=== PATIENT | female | born 1955 | race Caucasian/White ===

== ENCOUNTER 2017-06-27 06:20 | Observation (INO) | payer SELFPAY ==
[2017-06-27] VITALS (14 sets, daily range): BP systolic 118–193; BP diastolic 69–101; PULSE 85–99; RESP 14–18; TEMP 97.2–98.4; O2SAT 93–98
[~2017-06-27] VITALS: Ht 160 cm; Wt 104.2 kg
[~2017-06-27 06:20] MED LIST: GABA300C5 PO; METF500T PO
[2017-06-27] MEDS ORDERED: MORPHINE SULFATE 8 MG/ML INJ IV PUSH ONE (06:45)
[2017-06-27] MEDS ORDERED: SODIUM CHLORIDE 0.9% FLUSH 10 ML FLUSH IV FLUSH PRN ×2 (06:45→11:15)
[2017-06-27] MEDS ORDERED: ONDANSETRON HCL 4 MG/2 ML VIAL IVP ONE (06:45)
--- NOTE | 2017-06-27 06:47 | PD ---
HPI Chief Complaint: Abdominal Pain Time Seen by Provider: 06:42 Travel History International Travel<30 days: No Contact w/Intl Traveler<30days: No Traveled to known affect area: No History of Present Illness HPI 62yo F with PMH of COPD, DM and peripheral neuropathy presents to the ED with c/ o abdominal pain that started at 4am today. Pain is epigastric, RUQ and feels like it's on fire. It is sharp, constant and nonradiating. Associated with nausea and sob. Denies any fever, chest pain, vomiting, dysuria, hematuria, focal weakness or numbness. Denies history of gallstone or kidney stones. PFSH Past Medical History Arthritis: No Asthma: Yes Autoimmune Disease: No Blood Disorders: No Heart Rhythm Problems: No Cancer: No Cardiac Catheterization: No Cardiovascular Problems: No High Cholesterol: No Chemotherapy: No Chest Pain: No Congestive Heart Failure: No COPD: No Cerebrovascular Accident: No Diabetes: Yes Patient Takes Glucophage: No Diminished Hearing: No Endocrine: No Gastrointestinal Disorders: Yes GERD: No Glaucoma: No Genitourinary: No Headaches: No Hepatitis: No Hiatal Hernia: No Hypertension: No Immune Disorder: No Kidney Stones: No Musculoskeletal: No Neurologic: No Psychiatric: No Reproductive: No Respiratory: No Immunizations Current: Yes Migraines: No Myocardial Infarction: No Radiation Therapy: No Renal Failure: No Seizures: No Sickle Cell Disease: No Sleep Apnea: No Thyroid Disease: No Ulcer: No Influenza Vaccination: No ?: Not Menopausal: Yes : 2 Para: 2 Past Surgical History Abdominal Surgery: No AICD: No Arteriovenous Shunt: No Cardiac Surgery: No Section: Yes Coronary Artery Bypass Graft: No Ear Surgery: No Endocrine Surgery: No Eye Surgery: No Genitourinary Surgery: No Gynecologic Surgery: No Insulin Pump: No Joint Replacement: No Oral Surgery: No Pacemaker: No Thoracic Surgery: No Social History Alcohol Use: No Tobacco Use: Yes (1/2 PPD) Substance Use: No Allergies-Medications (Allergen,Severity, Reaction): Coded Allergies: No Known Allergies (Verified , 06/27/17) Reported Meds & Prescriptions Reported Meds & Active Scripts Active Reported Metformin (Metformin HCl) 500 Mg Tab 500 Mg PO BIDPC With meals Gabapentin 300 Mg Cap 300 Mg PO BID Review of Systems Except as stated in HPI: all other systems reviewed are Neg Physical Exam Narrative GENERAL: 62yo F in moderate distress. SKIN: Focused skin assessment warm/dry. HEAD: Atraumatic. Normocephalic. CARDIOVASCULAR: Regular rate and rhythm. No murmur appreciated. RESPIRATORY: No accessory muscle use. Crackle in left base. GASTROINTESTINAL: Abdomen soft, +TTP Epigastric and RUQ. MUSCULOSKELETAL: No obvious deformities. No clubbing. No cyanosis. +Trace bilateral lower edema. NEUROLOGICAL: Awake and alert. No obvious cranial nerve deficits. Motor grossly within normal limits. Normal speech. PSYCHIATRIC: Appropriate mood and affect; insight and judgment normal. Data Data Last Documented VS Vital Signs Date Time Temp Pulse Resp B/P (MAP) Pulse Ox O2 Delivery O2 Flow Rate FiO2 06/27/17 10:15 94 16 170/88 (115) 98 Room Air 06/27/17 08:35 2.00 06/27/17 06:36 98.1 Orders Orders Complete Blood Count With Diff (06/27/17 06:42) Comprehensive Metabolic Panel (06/27/17 06:42) Lipase (06/27/17 06:42) Prothrombin Time / Inr (Pt) (06/27/17 06:42) Act Partial Throm Time (Ptt) (06/27/17 06:42) Urinalysis - C+S If Indicated (06/27/17 06:42) Ct Abd/Pel W Iv Contrast(Rout) (06/27/17 06:42) Iv Access Insert/Monitor (06/27/17 06:42) Ecg Monitoring (06/27/17 06:42) Oximetry (06/27/17 06:42) Ondansetron Inj (Zofran Inj) (06/27/17 06:45) Sodium Chloride 0.9% Flush (Ns Flush) (06/27/17 06:45) Electrocardiogram (06/27/17 06:42) Troponin I (06/27/17 06:42) B-Type Natriuretic Peptide (06/27/17 06:42) Chest, Single Ap (06/27/17 ) Morphine Inj (Morphine Inj) (06/27/17 06:45) Iohexol 350 Inj (Omnipaque 350 Inj) (06/27/17 07:30) Us Abdomen Gallbladder (06/27/17 ) Us Abdomen Gallbladder (06/27/17 ) Piperacil-Tazo 3.375 Gm Premix (Zosyn 3. (06/27/17 10:45) Consult General Surgery (06/27/17 ) Admit Order (Ed Use Only) (06/27/17 10:43) Labs Laboratory Tests Test 06/27/17 06:45 06/27/17 08:30 White Blood Count 10.8 TH/MM3 Red Blood Count 5.47 MIL/MM3 Hemoglobin 15.6 GM/DL Hematocrit 47.9 % Mean Corpuscular Volume 87.5 FL Mean Corpuscular Hemoglobin 28.6 PG Mean Corpuscular Hemoglobin Concent 32.7 % Red Cell Distribution Width 13.4 % Platelet Count 275 TH/MM3 Mean Platelet Volume 8.4 FL Neutrophils (%) (Auto) 77.8 % Lymphocytes (%) (Auto) 12.8 % Monocytes (%) (Auto) 4.9 % Eosinophils (%) (Auto) 2.0 % Basophils (%) (Auto) 2.5 % Neutrophils # (Auto) 8.4 TH/MM3 Lymphocytes # (Auto) 1.4 TH/MM3 Monocytes # (Auto) 0.5 TH/MM3 Eosinophils # (Auto) 0.2 TH/MM3 Basophils # (Auto) 0.3 TH/MM3 CBC Comment DIFF FINAL Differential Comment Prothrombin Time 9.7 SEC Prothromb Time International Ratio 0.9 RATIO Activated Partial Thromboplast Time 28.2 SEC Blood Urea Nitrogen 12 MG/DL Creatinine 0.80 MG/DL Random Glucose 310 MG/DL Total Protein 7.8 GM/DL Albumin 3.3 GM/DL Calcium Level 8.8 MG/DL Alkaline Phosphatase 149 U/L Aspartate Amino Transf (AST/SGOT) 10 U/L Alanine Aminotransferase (ALT/SGPT) 20 U/L Total Bilirubin 0.3 MG/DL Sodium Level 136 MEQ/L Potassium Level 3.9 MEQ/L Chloride Level 104 MEQ/L Carbon Dioxide Level 26.0 MEQ/L Anion Gap 6 MEQ/L Estimat Glomerular Filtration Rate 72 ML/MIN Troponin I LESS THAN 0.02 NG/ML B-Type Natriuretic Peptide 5 PG/ML Lipase 243 U/L Urine Collection Type CLEAN CATCH Urine Color YELLOW Urine Turbidity CLEAR Urine pH 6.0 Urine Specific [place] GREATER THAN 1.035 Urine Protein NEG mg/dL Urine Glucose (UA) 1000 OR GREATER mg/dL Urine Ketones NEG mg/dL Urine Occult Blood TRACE Urine Nitrite NEG Urine Bilirubin NEG Urine Leukocyte Esterase NEG Urine RBC 0-3 /hpf Urine WBC 0-2 /hpf Urine Squamous Epithelial Cells 0-5 /hpf Urine Amorphous Sediment FEW Microscopic Urinalysis Comment CULT NOT INDICATED Urine Collection Time 0830 [facility] Medical Decision Making Medical Screen Exam Complete: Yes Emergency Medical Condition: Yes Differential Diagnosis Acute pancreatitis vs. cholecystitis vs. gastritis vs. colitis vs. atypical chest pain vs. pneumonia Narrative Course 62yo F with epigastric/right upper quadrant abdominal pain this morning that is associated with nausea and sob. Pt is not wheezing and saturating at 96% on RA. Pt seen at end of my shift and sign out to next team to follow up with labs , CXR, EKG, CT, UA and reevaluate after morphine, zofran. Diagnosis Primary Impression: Cholecystitis Leena Wilkins DO Jun 27, 2017 06:47
--- NOTE | 2017-06-27 06:59 | RADRPT ---
EXAM DATE/TIME: 06/27/2017 06:50 [facility] COMPARISON: No previous studies available for comparison. INDICATIONS : Short of breath. MEDICAL HISTORY : None. SURGICAL HISTORY : None. ENCOUNTER: Initial ACUITY: 1 day PAIN SCORE: 7/10 LOCATION: Bilateral chest FINDINGS: The heart size is normal. No focal consolidation is seen. There is minimal prominence of the intersti tium. No effusion is seen. CONCLUSION: Minimal prominence of the interstitium. José Manuel Lebron MD on June 27, 2017 at 6:57 Board Certified Radiologist. This report was verified electronically.
[2017-06-27 07:03] LABS: AUTOMATED NEUTROPHIL # 8.4 TH/MM3 (1.8-7.7); BASOPHIL # 0.3 TH/MM3 (0-0.2); BASOPHIL % 2.5 % (0.0-2.0); EOSINOPHIL # 0.2 TH/MM3 (0-0.4); HEMATOCRIT 47.9 % (35.0-46.0); LYMPH % 12.8 % (9.0-44.0); LYMPHOCYTE # 1.4 TH/MM3 (1.0-4.8); MEAN CELL VOLUME 87.5 FL (80.0-100.0); MEAN CORPUSCULAR HEMOGLOBIN 28.6 PG (27.0-34.0); MEAN CORPUSCULAR HGB CONC 32.7 % (32.0-36.0); MONO % 4.9 % (0.0-8.0); NEUT % 77.8 % (16.0-70.0); PLATELET COUNT 275 TH/MM3 (150-450); RED BLOOD COUNT 5.47 MIL/MM3 (4.00-5.30); RED CELL DISTRIBUTION WIDTH 13.4 % (11.6-17.2); WHITE BLOOD COUNT 10.8 TH/MM3 (4.0-11.0)
[2017-06-27 07:04] LABS: HEMO FLAGS DIFF FINAL
[2017-06-27 07:11] LABS: CHLORIDE 104 MEQ/L (98-107); POTASSIUM 3.9 MEQ/L (3.5-5.1); SODIUM (NA) 136 MEQ/L (136-145)
[2017-06-27 07:14] LABS: ANION GAP 6 MEQ/L (5-15)
[2017-06-27 07:15] LABS: APTT (PATIENT) 28.2 SEC (24.3-30.1); BLOOD UREA NITROGEN 12 MG/DL (7-18); INTERNATIONAL NORMALIZED RATIO 0.9 RATIO; PROTHROMBIN TIME - PATIENT 9.7 SEC (9.8-11.6)
[2017-06-27 07:17] LABS: ALT (GPT) 20 U/L (10-53); AST (GOT) 10 U/L (15-37); GLOMERULAR FILTRATION RATE 72 ML/MIN (>89)
[2017-06-27 07:19] LABS: TOTAL BILIRUBIN ADULT 0.3 MG/DL (0.2-1.0)
[2017-06-27 07:20] LABS: ALKALINE PHOSPHATASE 149 U/L (45-117)
[2017-06-27] MEDS ORDERED: IOHEXOL 350 MG/ML 10 ML VIAL (for RAD DIAG) IVCONTRAST ONE (07:30)
--- NOTE | 2017-06-27 07:53 | EKG ---
Date Performed: 06/27/2017 Time Performed: 07:08:05 PTAGE: 62 years EKG: Sinus rhythm NORMAL ECG No significant change from prior electrocardiogram. PREVIOUS TRACING : 08/31/2016 19.13 DOCTOR: Miguel Fishman Interpretating Date/Time 06/27/2017 07:51:15
--- NOTE | 2017-06-27 07:58 | RADRPT ---
EXAM DATE/TIME: 06/27/2017 07:32 [facility] COMPARISON: No previous studies available for comparison. INDICATIONS : Right sided abdominal pain. IV CONTRAST: 96 cc Omnipaque 350 (iohexol) IV ORAL CONTRAST: No oral contrast ingested. RADIATION DOSE: 22.10 CTDIvol (mGy) MEDICAL HISTORY : Diabetes SURGICAL HISTORY : C Section ENCOUNTER: Initial ACUITY: 1 day PAIN SCALE: 8/10 LOCATION: Right mid abdomen TECHNIQUE: Volumetric scanning of the abdomen and pelvis was performed. Using automated exposure control and ad justment of the mA and/or kV according to patient size, radiation dose was kept as low as reasonably achievable to obtain optimal diagnostic quality images. DICOM format image data is available electro nically for review and comparison. FINDINGS: LOWER LUNGS: The visualized lower lungs are clear. LIVER: Homogeneous density without lesion. There is no dilation of the biliary tree. There appears to be a stone in the base of the gallbladder. There is a trace of fluid adjacent to the gallbladder. Otherwis e, the gallbladder is unremarkable.. SPLEEN: Normal size without lesion. PANCREAS: Within normal limits. KIDNEYS: Normal in size and shape. There is no mass, stone or hydronephrosis. ADRENAL GLANDS: There is a 1.9 cm mass associated with the right adrenal gland. The left adrenal gland is unremarkabl e. VASCULAR: There is no aortic aneurysm. BOWEL/MESENTERY: The stomach, small bowel, and colon demonstrate no acute abnormality. There is no free intraperitone al air or fluid. The appendix is unremarkable. No inflammatory changes. ABDOMINAL WALL: Within normal limits. RETROPERITONEUM: There is no lymphadenopathy. BLADDER: No wall thickening or mass. REPRODUCTIVE: Within normal limits. INGUINAL: There is no lymphadenopathy or hernia. MUSCULOSKELETAL: Within normal limits for patient age. Mild degenerative changes. CONCLUSION: 1. There appears to be a gallstone in the base of the gallbladder. There is a trace of fluid around t he gallbladder. No biliary tract obstruction. 2. 1.9 cm right adrenal mass. This is most likely an adrenal adenoma. 3. The rest of examinations unremarkable for patient's age. Espinoza Vaughn MD on June 27, 2017 at 7:50 Board Certified Radiologist. This report was verified electronically.
[2017-06-27 08:51] LABS: BLOOD, URINE TRACE (NEG); GLUCOSE,URINE 1000 OR GREATER mg/dL (NEG); KETONE, URINE NEG (NEG); NITRITE,URINE NEG (NEG)
[2017-06-27 08:56] LABS: METHOD OF COLLECTION CLEAN CATCH; URINE COLOR YELLOW (YELLW/STRAW)
[2017-06-27 08:57] LABS: COMMENT (UR) CULT NOT INDICATED; CULTURE IF INDICATED CULT NOT INDICATED; RBC, URINE 0-3 /hpf (0-3); SQUAMOUS EPITHELIAL CELL URINE 0-5 /hpf (0-5); WBC, URINE 0-2 /hpf (0-5)
--- NOTE | 2017-06-27 09:50 | RADRPT ---
EXAM DATE/TIME: 06/27/2017 09:04 [facility] COMPARISON: CT ABDOMEN & PELVIS W CONTRAST, June 27, 2017, 7:32. INDICATIONS : Right upper quadrant pain. MEDICAL HISTORY : Asthma. Heartburn. Diabetes. SURGICAL HISTORY : section. ENCOUNTER: Initial ACUITY: 1 day PAIN SCORE: 8/10 LOCATION: Right upper quadrant MEASUREMENTS: LIVER: 17.8 cm length COMMON DUCT: Non-visualized RIGHT KIDNEY: 11.1 x 4.2 x 4.5 cm FINDINGS: LIVER: There is some increased echogenicity to liver parenchyma characteristic for fatty infiltration. No di lated biliary ducts. The portal system is patent. There is no evidence of ascites. COMMON DUCT: No intraluminal mass or stone visualized. GALLBLADDER: No definite gallstones are demonstrated. There is some sludge in the base of the gallbladder. There i s mild thickening of the gallbladder wall 3-4 mm. There is a trace of fluid around the gallbladder. PANCREAS: Not well visualized due to overlying bowel gas.. RIGHT KIDNEY: No evidence of hydronephrosis, stone, or mass. CONCLUSION: 1. No definite gallstones or biliary tract obstruction. 2. Mild thickening of the gallbladder wall with trace of fluid around the gallbladder. This most like ly chronic gallbladder disease. Espinoza Vaughn MD on June 27, 2017 at 9:46 Board Certified Radiologist. This report was verified electronically.
[2017-06-27] MEDS ORDERED: PIPERACIL-TAZO 3.375 GM PREMIX 50 ML IV ONE (10:45)
[2017-06-27] MEDS ORDERED: SODIUM CHLOR 0.9% 1000 ML INJ 1,000 ML IV SCH (11:12)
[2017-06-27] MEDS ORDERED: ACETAMINOPHEN 325 MG TAB PO PRN ×2 (11:15)
[2017-06-27] MEDS ORDERED: BISACODYL 10 MG SUPP RECTAL PRN (11:15)
[2017-06-27] MEDS ORDERED: SENNOSIDES 8.6 MG TAB PO PRN (11:15)
[2017-06-27] MEDS ORDERED: ONDANSETRON HCL 4 MG/2 ML VIAL IVP PRN (11:15)
[2017-06-27] MEDS ORDERED: NALOXONE HCL 0.4 MG/ML AMP IV PUSH PRN ×2 (11:15)
[2017-06-27] MEDS ORDERED: MAGNESIUM HYDROXIDE SUSP 30 ML CUP PO PRN (11:15)
[2017-06-27] MEDS: PIPERACIL-TAZO 4.5 GM PREMIX 100 ML IV SCH ×2 (11:34→18:00)
[2017-06-27] MEDS: SODIUM CHLOR 0.9% 1000 ML INJ 1,000 ML IV SCH (11:34)
[2017-06-27] MEDS: INSULIN ASPART SUPPLEMENTAL SCALE SQ SCH ×3 (12:00→21:00)
[2017-06-27] MEDS: HEPARIN SODIUM - SQ 10,000 UNITS/ML VIAL SQ SCH ×2 (13:06→20:00)
[2017-06-27] MEDS: MORPHINE SULFATE 4 MG/ML INJ IV PUSH PRN ×2 (13:09→21:34)
--- NOTE | 2017-06-27 13:49 | HHI.HP ---
[facility]Staff Ad[facility] Diagnosis acute cholecystitis Diagnoses: (1) Abdominal pain Diagnosis: Principal (2) Cholelithiasis Diagnosis: Principal Chief Complaint: Abdominal pain Travel History International Travel<30 Days: No Contact w/Intl Traveler <30 Da: No Traveled to Known Affected Are: No History of Present Illness Written by Norm Rubi, acting as scribe for Dr. Dubose on 06/27/17 at 13: 40. 62-year-old female with known history of diabetes, diabetic neuropathy , recently diagnosed with cancer who presented to hospital because acute onset abdominal pain. Patient states that she has been under a lot of stress recently over the last 2 days because she was just diagnosed with breast cancer which she tried indicate was ductal carcinoma of the right breast. She has had diarrhea for the last 2 days. However this morning at 4:30 AM she had sudden onset of right upper quadrant abdominal pain which was severe 10/10 on a pain scale with associated nausea and vomiting throughout the night with dry heaves. She states that she did have some diaphoresis. However she denied any fever or chills. She thought that she was having a heart attack with the discomfort she was experiencing so she came to the hospital for evaluation. Patient had workup done and CT the abdomen shows gallstone noted in the base of the gallbladder with trace of fluid around the gallbladder. Ultrasound was performed which did show mild thickening in the gallbladder wall with trace of fluid around the gallbladder. Because of those findings ER physician contacted general surgery who recommended medical observation with consultation. Review of Systems Respiratory: COMPLAINS OF: Shortness of breath Gastrointestinal: COMPLAINS OF: Abdominal pain, Diarrhea, Nausea, Vomiting Except as stated in HPI: all other systems reviewed are Neg Past Family Social History Past Medical History Diabetes Diabetic neuropathy Recent diagnosis of breast cancer Past Surgical History 2 Eyelid surgery Reported Medications Reported Meds & Active Scripts Active Reported Metformin (Metformin HCl) 500 Mg Tab 500 Mg PO BIDPC With meals Gabapentin 300 Mg Cap 300 Mg PO BID Allergies: Coded Allergies: No Known Allergies (Verified , 06/27/17) Family History Reviewed is significant for mother with cervical cancer, father with diabetes Social History Patient continues smoke a half a pack a cigarettes a day since she was 19 years old. Denies any alcohol or illicit drugs Physical Exam Vital Signs Vital Signs Date Time Temp Pulse Resp B/P (MAP) Pulse Ox O2 Delivery O2 Flow Rate FiO2 06/27/17 12:05 94 18 162/85 (110) 95 Nasal Cannula 2.00 06/27/17 10:53 96 16 169/87 (114) 96 Nasal Cannula 2.00 06/27/17 10:15 94 16 170/88 (115) 98 Room Air 06/27/17 08:35 97 16 179/89 (119) 93 Nasal Cannula 2.00 06/27/17 07:23 99 16 143/85 (104) 93 Nasal Cannula 2.00 06/27/17 07:10 16 06/27/17 06:55 18 94 Room Air 06/27/17 06:39 18 06/27/17 06:36 98.1 93 18 193/101 (131) 96 06/27/17 06:25 98.1 93 18 193/101 (131) 96 Physical Exam GENERAL: Well-developed, well-nourished, in no acute distress. alert and orientated HEENT: Head is normocephalic without any lesions or masses noted. Facial features are symmetric. Eyes: Pupils equal round reactive to light. Extraocular muscles are intact. Conjunctivae were clear. Oropharyngeal: Pharynx without any erythema edema. Tongue is midline without deviation. Buccal mucosa is moist without any masses or lesions NECK: Supple without any masses. Trachea midline no deviation. No JVD, no bruits are appreciated CARDIAC: Regular rhythm, regular rate. S1/S2 are heard. No murmurs gallops or rubs. LUNGS: Clear to auscultation bilaterally. No wheeze, rhonchi or rales. No use of accessory muscles on inspiration or expiration. ABDOMEN: Soft, significant pain in right upper quadrant with guarding. Nondistended. Bowel sounds heard in all 4 quadrants. No organomegaly or masses. Negative rebound, EXTREMITIES: No edema, pulses are equal bilaterally. No cyanosis or clubbing NEUROLOGY: Mood and affect appear appropriate. Cranial nerves II through XII grossly intact. Muscle strength 5/5 in upper and lower extremities bilaterally. Deep tendon reflexes are 2+ in upper and lower extremities bilaterally. Laboratory Laboratory Tests Test 06/27/17 06:45 10/14/17 08:30 White Blood Count 10.8 Red Blood Count 5.47 Hemoglobin 15.6 Hematocrit 47.9 Mean Corpuscular Volume 87.5 Mean Corpuscular Hemoglobin 28.6 Mean Corpuscular Hemoglobin Concent 32.7 Red Cell Distribution Width 13.4 Platelet Count 275 Mean Platelet Volume 8.4 Neutrophils (%) (Auto) 77.8 Lymphocytes (%) (Auto) 12.8 Monocytes (%) (Auto) 4.9 Eosinophils (%) (Auto) 2.0 Basophils (%) (Auto) 2.5 Neutrophils # (Auto) 8.4 Lymphocytes # (Auto) 1.4 Monocytes # (Auto) 0.5 Eosinophils # (Auto) 0.2 Basophils # (Auto) 0.3 CBC Comment DIFF FINAL Differential Comment Prothrombin Time 9.7 Prothromb Time International Ratio 0.9 Activated Partial Thromboplast Time 28.2 Blood Urea Nitrogen 12 Creatinine 0.80 Random Glucose 310 Total Protein 7.8 Albumin 3.3 Calcium Level 8.8 Alkaline Phosphatase 149 Aspartate Amino Transf (AST/SGOT) 10 Alanine Aminotransferase (ALT/SGPT) 20 Total Bilirubin 0.3 Sodium Level 136 Potassium Level 3.9 Chloride Level 104 Carbon Dioxide Level 26.0 Anion Gap 6 Estimat Glomerular Filtration Rate 72 Troponin I LESS THAN 0.02 B-Type Natriuretic Peptide 5 Lipase 243 Urine Collection Type CLEAN CATCH Urine Color YELLOW Urine Turbidity CLEAR Urine pH 6.0 Urine Specific [place] GREATER THAN 1.035 Urine Protein NEG Urine Glucose (UA) 1000 OR GREATER Urine Ketones NEG Urine Occult Blood TRACE Urine Nitrite NEG Urine Bilirubin NEG Urine Leukocyte Esterase NEG Urine RBC 0-3 Urine WBC 0-2 Urine Squamous Epithelial Cells 0-5 Urine Amorphous Sediment FEW Microscopic Urinalysis Comment CULT NOT INDICATED Urine Collection Time 0830 Result Diagram: 06/27/1745 06/27/17644 Imaging Last Impressions Abdomen/Pelvis CT 06/27/17641 Signed Impressions: Service Date/Time: Tuesday, June 27, 2017 07:32 - CONCLUSION: 1. There appears to be a gallstone in the base of the gallbladder. There is a trace of fluid around the gallbladder. No biliary tract obstruction. 2. 1.9 cm right adrenal mass. This is most likely an adrenal adenoma. 3. The rest of examinations unremarkable for patient's age. Espinoza Vaughn MD Gall Bladder Ultrasound 10/14/17 0000 Signed Impressions: Service Date/Time: Tuesday, June 27, 2017 09:04 - CONCLUSION: 1. No definite gallstones or biliary tract obstruction. 2. Mild thickening of the gallbladder wall with trace of fluid around the gallbladder. This most likely chronic gallbladder disease. Espinoza Vaughn MD Chest X-Ray 06/27/17 0000 Signed Impressions: Service Date/Time: Tuesday, June 27, 2017 06:50 - CONCLUSION: Minimal prominence of the interstitium. José Manuel Lebron MD Caprini VTE Risk Assessment Caprini VTE Risk Assessment: Mod/High Risk (score >= 2) Caprini Risk Assessment Model Point Value = 1 Point Value = 2 Point Value = 3 Point Value = 5 Age 41-60 Minor surgery BMI > 25 kg/m2 Swollen legs Varicose veins or History of unexplained or recurrent spontaneous Oral contraceptives or hormone replacement Sepsis (< 1 month) Serious lung disease, including pneumonia (< 1 month) Abnormal pulmonary function Acute myocardial infarction Congestive heart failure (< 1 month) History of inflammatory bowel disease Medical patient at bed rest Age 61-74 Arthroscopic surgery Major open surgery (> 45 min) Laparoscopic surgery (> 45 min) Malignancy Confined to bed (> 72 hours) Immobilizing plaster cast Central venous access Age >= 75 History of VTE Family history of VTE Factor V Leiden Prothrombin [id number] Lupus anticoagulant Anticardiolipin antibodies Elevated serum homocysteine Heparin-induced thrombocytopenia Other congenital or acquired thrombophilia Stroke (< 1 month) Elective arthroplasty Hip, pelvis, or leg fracture Acute spinal cord injury (< 1 month) Prophylaxis Regimen Total Risk Factor Score Risk Level Prophylaxis Regimen 0-1 Low Early ambulation 2 Moderate Order ONE of the following: *Sequential Compression Device (SCD) *Heparin 5000 units SQ BID 3-4 Higher Order ONE of the following medications: *Heparin 5000 units SQ TID *Enoxaparin/Lovenox 40 mg SQ daily (WT < 150 kg, CrCl > 30 mL/min) *Enoxaparin/Lovenox 30 mg SQ daily (WT < 150 kg, CrCl > 10-29 mL/min) *Enoxaparin/Lovenox 30 mg SQ BID (WT < 150 kg, CrCl > 30 mL/min) AND/OR *Sequential Compression Device (SCD) 5 or more Highest Order ONE of the following medications: *Heparin 5000 units SQ TID (Preferred with Epidurals) *Enoxaparin/Lovenox 40 mg SQ daily (WT < 150 kg, CrCl > 30 mL/min) *Enoxaparin/Lovenox 30 mg SQ daily (WT < 150 kg, CrCl > 10-29 mL/min) *Enoxaparin/Lovenox 30 mg SQ BID (WT < 150 kg, CrCl > 30 mL/min) AND *Sequential Compression Device (SCD) Assessment and Plan Assessment and Plan Abdominal pain with CT/ultrasound findings of cholecystitis, cholelithiasis Liver enzymes do not indicate any obstructive process Consider HIDA scan, will defer to general surgery General surgery consultation Continue IV fluids, nothing by mouth, pain control Empirical antibiotics to include Zosyn Diabetes, diabetic neuropathy Accu-Cheks with sliding scale insulin Continue gabapentin DVT prevention Subcutaneous heparin This note was transcribed by scribgerri [Norm Rubi]. I, Dr. Humaira Dubose personally performed the history, physical exam, and medical decision making; and confirmed the accuracy of the information in the transcribed note. Authenticated by Dr. Humaira Dubose on 06/27/17 at 13:40. Norm Rubi Jun 27, 2017 13:49 Humaira Dubose MD Jun 27, 2017 13:50
--- NOTE | 2017-06-27 18:20 | PD ---
Data Data Last Documented VS Vital Signs Date Time Temp Pulse Resp B/P (MAP) Pulse Ox O2 Delivery O2 Flow Rate FiO2 06/27/17 10:15 94 16 170/88 (115) 98 Room Air 06/27/17 08:35 2.00 06/27/17 06:36 98.1 Orders Orders Complete Blood Count With Diff (06/27/17 06:42) Comprehensive Metabolic Panel (06/27/17 06:42) Lipase (06/27/17 06:42) Prothrombin Time / Inr (Pt) (06/27/17 06:42) Act Partial Throm Time (Ptt) (06/27/17 06:42) Urinalysis - C+S If Indicated (06/27/17 06:42) Ct Abd/Pel W Iv Contrast(Rout) (06/27/17 06:42) Iv Access Insert/Monitor (06/27/17 06:42) Ecg Monitoring (06/27/17 06:42) Oximetry (06/27/17 06:42) Ondansetron Inj (Zofran Inj) (06/27/17 06:45) Sodium Chloride 0.9% Flush (Ns Flush) (06/27/17 06:45) Electrocardiogram (06/27/17 06:42) Troponin I (06/27/17 06:42) B-Type Natriuretic Peptide (06/27/17 06:42) Chest, Single Ap (06/27/17 ) Morphine Inj (Morphine Inj) (06/27/17 06:45) Iohexol 350 Inj (Omnipaque 350 Inj) (06/27/17 07:30) Us Abdomen Gallbladder (06/27/17 ) Us Abdomen Gallbladder (06/27/17 ) Piperacil-Tazo 3.375 Gm Premix (Zosyn 3. (06/27/17 10:45) Consult General Surgery (06/27/17 ) Admit Order (Ed Use Only) (06/27/17 10:43) Labs Laboratory Tests Test 06/27/17 06:45 06/27/17 08:30 White Blood Count 10.8 TH/MM3 Red Blood Count 5.47 MIL/MM3 Hemoglobin 15.6 GM/DL Hematocrit 47.9 % Mean Corpuscular Volume 87.5 FL Mean Corpuscular Hemoglobin 28.6 PG Mean Corpuscular Hemoglobin Concent 32.7 % Red Cell Distribution Width 13.4 % Platelet Count 275 TH/MM3 Mean Platelet Volume 8.4 FL Neutrophils (%) (Auto) 77.8 % Lymphocytes (%) (Auto) 12.8 % Monocytes (%) (Auto) 4.9 % Eosinophils (%) (Auto) 2.0 % Basophils (%) (Auto) 2.5 % Neutrophils # (Auto) 8.4 TH/MM3 Lymphocytes # (Auto) 1.4 TH/MM3 Monocytes # (Auto) 0.5 TH/MM3 Eosinophils # (Auto) 0.2 TH/MM3 Basophils # (Auto) 0.3 TH/MM3 CBC Comment DIFF FINAL Differential Comment Prothrombin Time 9.7 SEC Prothromb Time International Ratio 0.9 RATIO Activated Partial Thromboplast Time 28.2 SEC Blood Urea Nitrogen 12 MG/DL Creatinine 0.80 MG/DL Random Glucose 310 MG/DL Total Protein 7.8 GM/DL Albumin 3.3 GM/DL Calcium Level 8.8 MG/DL Alkaline Phosphatase 149 U/L Aspartate Amino Transf (AST/SGOT) 10 U/L Alanine Aminotransferase (ALT/SGPT) 20 U/L Total Bilirubin 0.3 MG/DL Sodium Level 136 MEQ/L Potassium Level 3.9 MEQ/L Chloride Level 104 MEQ/L Carbon Dioxide Level 26.0 MEQ/L Anion Gap 6 MEQ/L Estimat Glomerular Filtration Rate 72 ML/MIN Troponin I LESS THAN 0.02 NG/ML B-Type Natriuretic Peptide 5 PG/ML Lipase 243 U/L Urine Collection Type CLEAN CATCH Urine Color YELLOW Urine Turbidity CLEAR Urine pH 6.0 Urine Specific [place] GREATER THAN 1.035 Urine Protein NEG mg/dL Urine Glucose (UA) 1000 OR GREATER mg/dL Urine Ketones NEG mg/dL Urine Occult Blood TRACE Urine Nitrite NEG Urine Bilirubin NEG Urine Leukocyte Esterase NEG Urine RBC 0-3 /hpf Urine WBC 0-2 /hpf Urine Squamous Epithelial Cells 0-5 /hpf Urine Amorphous Sediment FEW Microscopic Urinalysis Comment CULT NOT INDICATED Urine Collection Time 0830 [facility] Supervised Visit with THANH: Yes Narrative Course This is a 62-year-old female who presents to the emergency department with right upper quadrant abdominal pain. CT scan was performed which demonstrates a gallstone and pericholecystic fluid. She continues to have persistent pain and dry heaving in the emergency department. Ultrasound confirms gallbladder wall thickening and pericholecystic fluid. I suspect this patient has acute cholecystitis. He was discussed with Dr. Travis Valdovinos who requested the patient be admitted to the hospitalist service. Patient was given a dose of Zosyn and will be placed on a clear liquid diet per surgery's request. Physician Communication Physician Communication Discussed with Dr. Riley and Dr. Dubose Diagnosis Primary Impression: Cholecystitis Admitting Information Admitting Physician Requests: Observation Vanessa Helton MD Jun 27, 2017 18:20
[2017-06-27] MEDS: SODIUM CHLORIDE 0.9% FLUSH 10 ML FLUSH IV FLUSH SCH (20:28)
[2017-06-27] MEDS: GABAPENTIN 300 MG CAP PO SCH (21:00)
[2017-06-27] MEDS: DOCUSATE SODIUM 50 MG/SENNA 8.6 MG TAB PO SCH (21:00)
[2017-06-27] MEDS: ONDANSETRON HCL 4 MG/2 ML VIAL IVP PRN (21:42)
[2017-06-28] VITALS (10 sets, daily range): BP systolic 123–130; BP diastolic 60–87; PULSE 78–94; RESP 16–22; TEMP 97.9–98.3; O2SAT 92–96
[2017-06-28] MEDS: PIPERACIL-TAZO 4.5 GM PREMIX 100 ML IV SCH ×5 (01:12→23:54)
[2017-06-28] MEDS: HEPARIN SODIUM - SQ 10,000 UNITS/ML VIAL SQ SCH ×3 (04:00→21:45)
[2017-06-28] MEDS: SODIUM CHLOR 0.9% 1000 ML INJ 1,000 ML IV SCH ×3 (07:01→23:58)
[2017-06-28 07:04] LABS: AUTOMATED NEUTROPHIL # 5.8 TH/MM3 (1.8-7.7); BASOPHIL % 0.5 % (0.0-2.0); EOSINOPHIL # 0.2 TH/MM3 (0-0.4); EOSINOPHIL % 2.4 % (0.0-4.0); HEMO FLAGS DIFF FINAL; LYMPHOCYTE # 1.4 TH/MM3 (1.0-4.8); MEAN CORPUSCULAR HEMOGLOBIN 29.3 PG (27.0-34.0); MEAN CORPUSCULAR HGB CONC 33.3 % (32.0-36.0); MONO % 7.1 % (0.0-8.0); PLATELET COUNT 227 TH/MM3 (150-450); RED BLOOD COUNT 4.66 MIL/MM3 (4.00-5.30); RED CELL DISTRIBUTION WIDTH 13.4 % (11.6-17.2)
[2017-06-28 07:10] LABS: POTASSIUM 4.3 MEQ/L (3.5-5.1)
[2017-06-28 07:14] LABS: BICARBONATE 29.9 MEQ/L (21.0-32.0)
[2017-06-28] MEDS: SODIUM CHLORIDE 0.9% FLUSH 10 ML FLUSH IV FLUSH SCH ×2 (08:24→21:42)
--- NOTE | 2017-06-28 08:36 | MB ---
cc: DEMETRICE CONTRERAS KHALIL MD DATE OF CONSULTATION: 06/28/2017 REQUESTING PHYSICIAN: Dr. Dubose. REASON FOR CONSULTATION: Acute and chronic cholecystitis. HISTORY OF PRESENT ILLNESS: The patient is a 52 year-old female who was recently diagnosed with breast cancer on a GI biopsy per her report who developed sudden onset of right upper quadrant pain. The patient presented to [facility] for evaluation and underwent CT scan and ultrasound of the gallbladder which is consistent with symptomatic or chronic cholecystitis. The patient does not respond to pain medications and over time has had persistent pain concerning for early acute cholecystitis. The patient was admitted, placed on IV antibiotics, general surgery was consulted. The patient states her pain in the right lower quadrant is severe, 10 out of 10 at worse, but now is currently better. It radiates around to her flank. She has never had this pain before. She does not recall any large meal that caused her symptoms. REVIEW OF SYSTEMS 12-point review of systems conducted with the patient is negative except for the pertinent positives mentioned above in the history of present illness. PAST MEDICAL HISTORY: 1. Diabetes. 2. Diabetic neuropathy. 3. Recent diagnosis of breast cancer as above. PAST SURGICAL HISTORY: x2 ALLERGIES: NO KNOWN DRUG ALLERGIES. MEDICATIONS: Metformin. FAMILY HISTORY: Mother with cervical cancer. Father had diabetes. FAMILY HISTORY The patient does smoke cigarettes. Denies alcohol, or illicit drug use. PHYSICAL EXAMINATION: VITAL SIGNS: Temperature 98.3 degrees, pulse 96, heart rate 118/79. GENERAL: The patient is an overweight female in no acute distress. HEAD: Normocephalic, atraumatic. Pupils round and reactive to light and accommodation. Sclerae is anicteric. Mucous membranes are moist. Oral cavity is clear. Airway is patent. Lungs: Clear to auscultation bilaterally. Nonlabored breathing pattern. Heart: Regular rate and rhythm. No murmurs. Abdomen: Soft, obese. Normal bowel sounds. Subjective tenderness in the right upper quadrant without Crawford's sign. No appreciable surgical scars or hernias. No masses and no ascites. Back: No CVA tenderness. Extremities: No clubbing, cyanosis or edema. Neurologic: The patient is alert, oriented x3, nonfocal peripheral exam. Cranial nerves II-XII grossly intact. Breasts: Deferred. ASSESSMENT/PLAN The patient is a 62 year-old female with chronic cholecystitis, more likely acute on chronic cholecystitis. I discussed gallbladder disease with the patient and treatment options including operative and nonoperative management. The patient states she continues to have significant pain, is unable to tolerate diet, and requires IV pain medicine, and she would like surgery as an inpatient as soon as possible. I did offer the patient cholecystectomy in the next 24 to 48 hours based on operating room availaility. She is in agreement with this, and we will keep the patient on a low-fat diet, make her n.p.o. after midnight for Thursday tomorrow morning as likely we will be able to find some time Thursday for elective cholecystectomy. Again, she is agreeable for this procedure. We will continue glycemic control and pain medications and antibiotics. Will plan for surgery sometime on Thursday. MD CAROLINA Richardson/MEEK /1:49 AM /8:15 AM
[2017-06-28] MEDS: INSULIN ASPART SUPPLEMENTAL SCALE SQ SCH ×4 (09:47→21:00)
[2017-06-28] MEDS: GABAPENTIN 300 MG CAP PO SCH ×2 (09:48→21:41)
[2017-06-28] MEDS: DOCUSATE SODIUM 50 MG/SENNA 8.6 MG TAB PO SCH ×2 (09:48→21:46)
[2017-06-28] MEDS: MORPHINE SULFATE 4 MG/ML INJ IV PUSH PRN ×2 (09:48→22:29)
[2017-06-28] MEDS: NICOTINE 14 MG/24 HR PATCH T-DERMAL SCH (12:00)
[2017-06-28] MEDS ORDERED: RESP: ALBUTEROL 2.5 MG/3 ML NEB (PRN) INH (12:45)
[2017-06-28] MEDS ORDERED: RESP: ALBUTEROL 2.5 MG/IPRATROPIUM 0.5 MG NEB (SCH) INH (13:00)
--- NOTE | 2017-06-28 13:09 | HHI.PR ---
Subjective Remarks Patient felt short of breath today she is on O2, abdominal pain is better with pain pills but comes back when it wears off Seen by the surgeon plan for surgery on Thursday Objective Vitals Vital Signs Date Time Temp Pulse Resp B/P (MAP) Pulse Ox O2 Delivery O2 Flow Rate FiO2 06/28/17 12:00 98.0 82 17 128/72 (90) 95 06/28/17 08:00 98.3 91 18 130/60 (83) 94 06/28/17 08:00 94 Nasal Cannula 2.00 06/28/17 04:00 98.3 88 16 126/72 (90) 96 06/28/17 00:00 97.9 89 20 126/87 (100) 92 06/27/17 21:39 18 06/27/17 20:20 95 Nasal Cannula 2.00 06/27/17 20:05 85 06/27/17 20:00 98.4 86 16 121/70 (87) 96 06/27/17 16:00 98.3 96 14 118/79 (92) 94 I/O 06/27/17 06/27/17 06/27/17 06/28/17 06/28/17 06/28/17 07:00 15:00 23:00 07:00 15:00 23:00 Intake Total 1325 ml 100 ml Balance 1325 ml 100 ml Intake Oral 580 ml IV Total 745 ml 100 ml # Voids 1 4 2 # Bowel Movements 0 0 Result Diagram: 06/28/17 0640 06/28/17 0640 Objective Remarks GENERAL: This is a well-nourished, well-developed patient, in no apparent distress. SKIN: No rashes, warm and dry HEAD: Atraumatic. Normocephalic. EYES: Pupils equal round and reactive. Extraocular motions intact. No scleral icterus. ENT: Nose without bleeding, or drainage, Airway patent. NECK: Trachea midline. Supple CARDIOVASCULAR: Regular rate and rhythm without murmurs, gallops, or rubs. RESPIRATORY: Fair air entry bilaterally. No wheezes, rales, or rhonchi. GASTROINTESTINAL: Abdomen soft, right upper quadrant tenderness, nondistended. Positive bowel sounds MUSCULOSKELETAL: Extremities without clubbing, cyanosis, or edema. Pedal pulses appreciated NEUROLOGICAL: Awake and alert. Moves all extremity. Normal speech.no focal neurological deficit A/P Problem List: (1) Abdominal pain ICD Code: R10.9 - Unspecified abdominal pain (2) Cholelithiasis ICD Code: K80.20 - Calculus of gallbladder without cholecystitis without obstruction Assessment and Plan Abdominal pain with CT/ultrasound findings of cholecystitis, cholelithiasis Liver enzymes normal limit Patient general surgery consultation plan for surgery in a.m. General surgery consultation Continue IV fluids, nothing by mouth, pain control Empirical antibiotics to include Zosyn Diabetes, diabetic neuropathy Accu-Cheks with sliding scale insulin Continue gabapentin History of COPD and bronchial asthma, having currently short of breath We'll provide O2, DuoNeb, I will place on Solu-Medrol to improve rhonchus spasm DVT prevention Subcutaneous heparin Humaira Dubose MD Jun 28, 2017 13:09
[2017-06-28] MEDS: methylPREDNISolone SOD SUCC 40 MG/1 ML VIAL IV PUSH SCH ×2 (13:56→21:45)
[2017-06-28] MEDS: RESP: ALBUTEROL 2.5 MG/IPRATROPIUM 0.5 MG NEB (SCH) INH (19:19)
[2017-06-28] MEDS: ONDANSETRON HCL 4 MG/2 ML VIAL IVP PRN (22:46)
[2017-06-29] VITALS (9 sets, daily range): BP systolic 109–134; BP diastolic 55–94; PULSE 82–105; RESP 16–20; TEMP 96.2–97.1; O2SAT 91–96
[2017-06-29] MEDS: SODIUM CHLOR 0.9% 1000 ML INJ 1,000 ML IV SCH ×2 (03:01→14:00)
[2017-06-29] MEDS: methylPREDNISolone SOD SUCC 40 MG/1 ML VIAL IV PUSH SCH ×3 (04:01→21:00)
[2017-06-29] MEDS: HEPARIN SODIUM - SQ 10,000 UNITS/ML VIAL SQ SCH ×3 (04:01→20:53)
[2017-06-29] MEDS: PIPERACIL-TAZO 4.5 GM PREMIX 100 ML IV SCH ×4 (05:30→23:18)
[2017-06-29] MEDS ORDERED: RESP: ALBUTEROL 2.5 MG/3 ML NEB (SCH) ONE (06:44)
[2017-06-29] MEDS ORDERED: BUPIVACAINE/EPINEPHRINE 0.5% 50 ML VIAL ONE (07:11)
[2017-06-29] MEDS ORDERED: FAMOTIDINE 20 MG/2 ML VIAL ONE (07:17)
[2017-06-29] MEDS ORDERED: METOPROLOL TARTRATE 25 MG TAB PO PRN (07:45)
[2017-06-29] MEDS ORDERED: SODIUM CHLORID 0.9% 500 ML IV PRN (07:45)
[2017-06-29] MEDS ORDERED: POVIDONE IODINE 5% (ANTISEPSIS KIT) 4 APPLICATIONS EACH NARE PRN (07:45)
[2017-06-29] MEDS ORDERED: CHLORHEXIDINE GLUCONATE 2 % 1 PACK (2 CLOTHS) TOPICAL PRN (07:45)
[2017-06-29] MEDS ORDERED: LACTATED RINGER'S 1000 ML IV PRN (07:45)
[2017-06-29] MEDS ORDERED: INSULIN HUMAN REGULAR 1,000 UNITS/10 ML VIAL SQ PRN (07:45)
[2017-06-29] MEDS: RESP: ALBUTEROL 2.5 MG/IPRATROPIUM 0.5 MG NEB (SCH) INH ×3 (07:50→19:58)
[2017-06-29] MEDS ORDERED: SUGAMMADEX SODIUM 200 MG/2 ML VIAL IV PUSH ONE ×2 (07:56)
[2017-06-29] MEDS: INSULIN ASPART SUPPLEMENTAL SCALE SQ SCH ×4 (08:00→20:52)
[2017-06-29] MEDS: REMOVE OLD PATCH T-DERMAL SCH (09:00)
[2017-06-29] MEDS: GABAPENTIN 300 MG CAP PO SCH ×2 (09:00→20:52)
[2017-06-29] MEDS: SODIUM CHLORIDE 0.9% FLUSH 10 ML FLUSH IV FLUSH SCH ×2 (09:00→20:38)
[2017-06-29] MEDS: DOCUSATE SODIUM 50 MG/SENNA 8.6 MG TAB PO SCH ×2 (09:00→20:52)
[2017-06-29] MEDS ORDERED: ACETAMINOPHEN/HYDROcodone 325 MG/5 MG TAB PO PRN (09:30)
[2017-06-29] MEDS ORDERED: fentaNYL CITRATE 250 MCG/5 ML AMP ONE (10:09)
[2017-06-29] MEDS ORDERED: MORPHINE SULFATE 4 MG/ML INJ ONE ×2 (10:16→11:06)
[2017-06-29] MEDS ORDERED: INSULIN ASPART 1,000 UNITS/10 ML VIAL SQ ONE (10:51)
[2017-06-29] MEDS ORDERED: RESP: ALBUTEROL 2.5 MG/IPRATROPIUM 0.5 MG NEB (SCH) NEB ONE (12:15)
--- NOTE | 2017-06-29 13:44 | MP ---
cc: DEMETRICE CONTRERAS DATE OF SURGERY: 06/29/2017 PREOPERATIVE DIAGNOSIS Acute cholecystitis. POSTOPERATIVE DIAGNOSIS Acute cholecystectomy. PROCEDURE Laparoscopic cholecystectomy. ATTENDING SURGEON Dr. Contreras. SHIPPING ROOM SUPERVISOR Dat Yadav, MS III. ANESTHESIA General. ESTIMATED BLOOD LOSS 100 cc. COMPLICATIONS None. FINDINGS A very acutely inflamed gallbladder with multiple gallstones. Otherwise no intra-abdominal pathology noted. INDICATION FOR PROCEDURE The patient is a 62-year-old female with 48 hours of increasing right upper quadrant pain. The patient states that she has no history of gallstones but underwent evaluation in the emergency department at [facility] and was found to have large gallstones and sonographic Crawford's sign. The patient otherwise has no increased white blood cell count and no laboratory derangements. Normal LFTs. The patient was admitted. General surgery was consulted. I discussed with the patient the risks, benefits and alternatives to laparoscopic cholecystectomy for treatment of her cholecystitis. She agreed to undergo the procedure. DETAILS OF PROCEDURE The patient was taken to the operating room, placed in a supine position, placed under general endotracheal anesthesia. The patient's abdomen was prepped and draped in a sterile fashion. The abdomen was entered through an OptiView entry with a 5 mm camera left of the umbilicus. We used lidocaine at the site as well as all port sites. We directly visualized entry into the abdomen, insufflated the abdomen and surveyed the abdomen with a 5 mm, 30 degree scope. We placed a 10 mm port in the subxiphoid position and two 5 mm ports in the right upper quadrant under visualization with the laparoscope. We were able to grasp the gallbladder, retract it upward, and dissect out the infundibulum of the gallbladder and triangle of [place]. We used hook electrocautery as well as a [place] dissector. A critical view of safety was obtained. We doubly clipped proximal and distal on the cystic duct and divided this with laparoscopic Endoshears. We doubly clipped proximal and distal on the cystic artery and divided this with Endoshears. The gallbladder was removed from the gallbladder bed with the electrocautery. During this time there was some small punctate arterial bleeding from a small branch of the arterial system at the gallbladder bed. Again, this was a very small 1 mm vessel. We got excellent hemostasis with two hemoclips. We then continued our dissection and removed the gallbladder from the gallbladder fossa with the hook electrocautery. We removed the gallbladder from the abdomen with the EndoCatch bag through the subxiphoid port. We did use some suction irrigation to remove a few small blood clots. There was no bile spillage or stone spillage. We then placed some Surgicel in the gallbladder bed fossa to assist with hemostasis, so the patient had absolutely no bleeding once we had clipped that little posterior branch. We removed all ports under visualization with the laparoscope and expressed pneumoperitoneum. We closed the subxiphoid port with a [id number] 0 Vicryl suture. We closed the skin with 4-0 Monocryl and Dermabond. The patient was discontinued from anesthesia and taken to the PACU in stable condition. The patient tolerated the procedure well. There were no apparent complications. All counts were correct. I was present and scrubbed for the entire procedure. MD CAROLINA Richardson/GEM /12:07 PM /1:24 PM
[2017-06-29] MEDS: ACETAMINOPHEN/HYDROcodone 325 MG/5 MG TAB PO PRN ×3 (13:54→22:19)
[2017-06-29] MEDS: NICOTINE 14 MG/24 HR PATCH T-DERMAL SCH (13:55)
--- NOTE | 2017-06-29 16:09 | HHI.PR ---
Subjective Remarks Patient just came from laparoscopic cholecystectomy Feeling sore throat Otherwise no other complaints she looks stable Objective Vitals Vital Signs Date Time Temp Pulse Resp B/P (MAP) Pulse Ox O2 Delivery O2 Flow Rate FiO2 06/29/17 14:54 18 06/29/17 14:31 96 Nasal Cannula 3.50 06/29/17 13:00 96.3 82 18 132/94 (107) 06/29/17 12:40 98.0 90 16 138/66 (90) 92 Nasal Cannula 3 06/29/17 11:25 98.8 94 16 138/66 (90) 92 Nasal Cannula 4 06/29/17 11:10 98.8 94 16 143/81 (101) 92 Nasal Cannula 4 06/29/17 10:37 98.8 104 16 143/81 (101) 94 Nasal Cannula 4 06/29/17 10:25 98.8 96 16 143/81 (101) 91 Nasal Cannula 6 06/29/17 10:10 98.8 90 16 123/61 (81) 93 Nasal Cannula 2 06/29/17 09:55 98.8 95 16 118/65 (82) 92 Nasal Cannula 4 06/29/17 09:50 98.8 96 16 125/52 (76) 92 Nasal Cannula 6 06/29/17 09:47 96 06/29/17 07:00 96.3 83 16 134/63 (86) 92 06/29/17 04:00 96.3 83 20 134/63 (86) 91 06/29/17 00:00 96.9 88 20 116/69 (85) 92 06/28/17 23:00 78 06/28/17 20:00 98.3 94 22 126/71 (89) 94 06/28/17 19:22 93 Nasal Cannula 2.00 06/28/17 19:00 Nasal Cannula 2.00 06/28/17 17:47 98 Nasal Cannula 1.00 I/O 06/28/17 06/28/17 06/28/17 06/29/17 06/29/17 06/29/17 07:00 15:00 23:00 07:00 15:00 23:00 Intake Total 100 ml 2984 ml 1777 ml 840 ml Output Total 100 ml Balance 100 ml 2984 ml 1777 ml 740 ml Intake Oral 960 ml 240 ml IV Total 100 ml 2024 ml 1777 ml Other 600 ml Output Estimated Blood Loss 100 ml # Voids 2 2 3 # Bowel Movements 0 0 0 Result Diagram: 06/28/1763906/28/17639 Objective Remarks GENERAL: This is a well-nourished, well-developed patient, in no apparent distress. SKIN: No rashes, warm and dry HEAD: Atraumatic. Normocephalic. EYES: Pupils equal round and reactive. Extraocular motions intact. No scleral icterus. ENT: Nose without bleeding, or drainage, Airway patent. NECK: Trachea midline. Supple CARDIOVASCULAR: Regular rate and rhythm without murmurs, gallops, or rubs. RESPIRATORY: Fair air entry bilaterally. No wheezes, rales, or rhonchi. GASTROINTESTINAL: Abdomen soft, avoided palpation(patient post laparoscopic cholecystectomy), nondistended. Positive bowel sounds MUSCULOSKELETAL: Extremities without clubbing, cyanosis, or edema. Pedal pulses appreciated NEUROLOGICAL: Awake and alert. Moves all extremity. Normal speech.no focal neurological deficit A/P Problem List: (1) Abdominal pain ICD Code: R10.9 - Unspecified abdominal pain (2) Cholelithiasis ICD Code: K80.20 - Calculus of gallbladder without cholecystitis without obstruction Assessment and Plan Abdominal pain with CT/ultrasound findings of cholecystitis, cholelithiasis Liver enzymes normal limit Appreciate general surgery consultation, patient status post laparoscopic cholecystectomy 06/29 General surgery consultation Continue IV fluids, nothing by mouth, pain control Empirical antibiotics to include Zosyn Diabetes, diabetic neuropathy Accu-Cheks with sliding scale insulin Continue gabapentin History of COPD and bronchial asthma, having currently short of breath We'll provide O2, DuoNeb, I will place on Solu-Medrol to improve rhonchus spasm DVT prevention Subcutaneous heparin Discharge Planning When clear by surgery Humaira Dubose MD Jun 29, 2017 16:09
[2017-06-30] VITALS: BP 169/97; PULSE 81; RESP 22; TEMP 98.2; O2SAT 95
[2017-06-30] MEDS: SODIUM CHLOR 0.9% 1000 ML INJ 1,000 ML IV SCH ×2 (01:04→08:54)
[2017-06-30] MEDS ORDERED: BENZOCAINE-MENTHOL (SUGAR FREE) 15 MG-3.6 MG LOZENGE BUCCAL ONE (01:30)
[2017-06-30 04:00] VITALS: BP 113/63; PULSE 85; RESP 18; TEMP 96.7; O2SAT 97
[2017-06-30] MEDS: methylPREDNISolone SOD SUCC 40 MG/1 ML VIAL IV PUSH SCH ×2 (05:00→13:00)
[2017-06-30] MEDS: PIPERACIL-TAZO 4.5 GM PREMIX 100 ML IV SCH ×2 (05:05→12:00)
[2017-06-30] MEDS: HEPARIN SODIUM - SQ 10,000 UNITS/ML VIAL SQ SCH ×2 (05:05→13:10)
[2017-06-30] MEDS: ACETAMINOPHEN/HYDROcodone 325 MG/5 MG TAB PO PRN ×3 (05:06→15:11)
[2017-06-30 07:00] VITALS: PULSE 86
[2017-06-30 07:29] VITALS: O2SAT 96
[2017-06-30] MEDS: RESP: ALBUTEROL 2.5 MG/IPRATROPIUM 0.5 MG NEB (SCH) INH ×2 (07:29→14:51)
[2017-06-30 08:00] VITALS: BP 105/54; PULSE 79; PULSE 86; RESP 20; TEMP 97.9; O2SAT 97
[2017-06-30] MEDS: SODIUM CHLORIDE 0.9% FLUSH 10 ML FLUSH IV FLUSH SCH (08:49)
[2017-06-30] MEDS: INSULIN ASPART SUPPLEMENTAL SCALE SQ SCH ×2 (08:49→13:09)
[2017-06-30] MEDS: GABAPENTIN 300 MG CAP PO SCH (08:50)
[2017-06-30] MEDS: DOCUSATE SODIUM 50 MG/SENNA 8.6 MG TAB PO SCH (08:50)
[2017-06-30] MEDS: NICOTINE 14 MG/24 HR PATCH T-DERMAL SCH (08:52)
[2017-06-30] MEDS: REMOVE OLD PATCH T-DERMAL SCH (09:00)
[2017-06-30] MEDS ORDERED: AUGM500T7 PO (11:34)
--- NOTE | 2017-06-30 11:34 | HHI.DCPOC ---
Discharge Care Plan Diagnosis: (1) Cholecystitis Goals to Promote Your Health * To prevent worsening of your condition and complications * To maintain your health at the optimal level Directions to Meet Your Goals Take your medications as prescribed Follow your dietary instruction Follow activity as directed Keep your appointments as scheduled Take your immunizations and boosters as scheduled If your symptoms worsen call your PCP, if no PCP go to Urgent Care Center or Emergency Room Smoking is Dangerous to Your Health. Avoid second hand smoke Call the 24-hour hour crisis hotline for domestic abuse at Brandi Townsend MD Jun 30, 2017 11:34
--- NOTE | 2017-06-30 11:37 | HHI.DS ---
Discharge Summary Admission Date Jun 27, 2017 at 10:45 Discharge Date: Jun 30, 2017 Admitting Diagnosis acute cholecystitis (1) Abdominal pain ICD Code: R10.9 - Unspecified abdominal pain Diagnosis: Principal (2) Cholelithiasis ICD Code: K80.20 - Calculus of gallbladder without cholecystitis without obstruction Diagnosis: Principal (3) DM2 (diabetes mellitus, type 2) ICD Code: E11.9 - Type 2 diabetes mellitus without complications Procedures Laparoscopic cholecystectomy Brief History - From Admission Written by Norm Rubi, acting as scribe for Dr. Dubose on 06/27/17 at 13: 40. 62-year-old female with known history of diabetes, diabetic neuropathy , recently diagnosed with cancer who presented to hospital because acute onset abdominal pain. Patient states that she has been under a lot of stress recently over the last 2 days because she was just diagnosed with breast cancer which she tried indicate was ductal carcinoma of the right breast. She has had diarrhea for the last 2 days. However this morning at 4:30 AM she had sudden onset of right upper quadrant abdominal pain which was severe 10/10 on a pain scale with associated nausea and vomiting throughout the night with dry heaves. She states that she did have some diaphoresis. However she denied any fever or chills. She thought that she was having a heart attack with the discomfort she was experiencing so she came to the hospital for evaluation. Patient had workup done and CT the abdomen shows gallstone noted in the base of the gallbladder with trace of fluid around the gallbladder. Ultrasound was performed which did show mild thickening in the gallbladder wall with trace of fluid around the gallbladder. Because of those findings ER physician contacted general surgery who recommended medical observation with consultation. CBC/BMP: 06/28/17 0640 06/28/17 0640 Significant Findings Laboratory Tests Test 06/28/17 06:40 Neutrophils (%) (Auto) 73.0 % (16.0-70.0) Random Glucose 190 MG/DL (74-106) Calcium Level 8.2 MG/DL (8.5-10.1) Anion Gap 4 MEQ/L (5-15) Estimat Glomerular Filtration Rate 86 ML/MIN (>89) Imaging Last Impressions Abdomen/Pelvis CT 06/27/17 0642 Signed Impressions: Service Date/Time: Tuesday, June 27, 2017 07:32 - CONCLUSION: 1. There appears to be a gallstone in the base of the gallbladder. There is a trace of fluid around the gallbladder. No biliary tract obstruction. 2. 1.9 cm right adrenal mass. This is most likely an adrenal adenoma. 3. The rest of examinations unremarkable for patient's age. Espinoza Vaughn MD Gall Bladder Ultrasound 06/27/17 0000 Signed Impressions: Service Date/Time: Tuesday, June 27, 2017 09:04 - CONCLUSION: 1. No definite gallstones or biliary tract obstruction. 2. Mild thickening of the gallbladder wall with trace of fluid around the gallbladder. This most likely chronic gallbladder disease. Espinoza Vaughn MD Chest X-Ray 06/27/17 0000 Signed Impressions: Service Date/Time: Tuesday, June 27, 2017 06:50 - CONCLUSION: Minimal prominence of the interstitium. José Manuel Lebron MD PE at Discharge Patient with multiple post surgical areas which are well approximated GENERAL: This is a well-nourished, well-developed patient, in no apparent distress. CARDIOVASCULAR: Regular rate and rhythm without murmurs, gallops, or rubs. RESPIRATORY: Clear to auscultation. Breath sounds equal bilaterally. No wheezes , rales, or rhonchi. GASTROINTESTINAL: Abdomen soft, non-tender, nondistended. Normal active bowel sounds MUSCULOSKELETAL: Extremities without clubbing, cyanosis, or edema. NEURO: Alert & Oriented x4 to person, place, time, situation. Moves all ext x4 Pt update on day of discharge Patient doing well. Reports some left upper extremity swelling status post IV placement. This is greatly improved since the initial incident early this morning. It is nontender and nonrigid Hospital Course Patient is a 62-year-old female did come in with abdominal discomfort deemed to be related to her gallstones. Patient had cholecystectomy which was uneventful and laparoscopic. She was discharged home to continue management with primary care providers for diabetes and diabetic neuropathy. She is also to follow-up with Gen. surgery for breast cancer which is receiving diagnosed in the right breast. Pt Condition on Discharge: Good Discharge Disposition: Discharge Home Discharge Time: > 30 minutes Discharge Instructions DIET: Follow Instructions for: As Tolerated, No Restrictions Activities you can perform: Regular-No Restrictions Follow up Referrals: PCP Follow-up - 1 Week Surgical - 10 Days with Morgan Riley MD New Medications: Amoxicillin-Clavulanate (Augmentin) 500-125 mg Tab 500 MG PO BID for Infection for 5 Days, #10 TAB 0 Refills Continued Medications: Metformin (Metformin) 500 Mg Tab 500 MG PO BIDPC for Blood Sugar Management, #60 TAB 0 Refills With Brandi Segura MD Jun 30, 2017 11:37
[2017-06-30 12:00] VITALS: BP 115/61; PULSE 87; RESP 18; TEMP 98.1; O2SAT 96
--- NOTE | 2017-06-30 13:39 | HHI.PR ---
Subjective Subjective Notes Resting in bed No issues Going home today Objective Vitals/I&O Vital Signs Date Time Temp Pulse Resp B/P (MAP) Pulse Ox O2 Delivery O2 Flow Rate FiO2 06/30/17 12:00 98.1 87 18 115/61 (79) 96 06/30/17 07:29 Nasal Cannula 2.00 Cardiovascular: Regular Lungs: Clear Abdomen: Other (lap sites c/d/i; obese abdomen; soft minimally tender with palpation ) Extremities: No edema A/P Assessment and Plan 62 year old female POD1 lap cat; uncomplicated -Regular diet -Pain control -Okay to DC from GS standpoint -Follow up in the office with Dr. Riley on Jul 08 -Okay to shower this evening; no bathtubs, swimming pools or beach Libby Johansen Jun 30, 2017 13:39
== END 2017-06-30 15:15 | disposition home or self-care (01) ==
LOC: PHED 06:20 → PHEDA 10:44 → UNDOADMOB 10:45 → PHEDA 10:45 → INTOOBSV 10:45 → OBSVTOIN 10:45 → PH3A 12:06 → PHEDA 12:06 → UNDODISOB 06-30 15:15
PROVIDERS: ADMIT Hospitalist; ATTEND Hospitalist
DX: K80.13 Calculus of gallbladder with acute and chronic cholecystitis with obstruction (principal); E11.42 Type 2 diabetes mellitus with diabetic polyneuropathy; C50.911 Malignant neoplasm of unspecified site of right female breast; J44.9 Chronic obstructive pulmonary disease, unspecified; R79.1 Abnormal coagulation profile; F17.210 Nicotine dependence, cigarettes, uncomplicated; Z79.84 Long term (current) use of oral hypoglycemic drugs; Z80.49 Family history of malignant neoplasm of other genital organs; Z83.3 Family history of diabetes mellitus; R06.02 Shortness of breath
CPT/HCPCS: 00790; 47562; 71010; 74177; 76705; 80048; 80053; 81001; 82948; 83690; 83880; 84484; 85025; 85610; 85730; 88304; 93005; 94640; 94664; 96361; 96365; 96366; 96372; 96375; 96376; 99285; G0378; J1644; J1815; J2270; J2405; J2543; J2920; J3010; J7030; J7120; J7613; Q9967